=== PATIENT | female | born 1985 | race Caucasian/White ===

== ENCOUNTER 2016-06-10 15:57 | Inpatient (IN) | payer BC ==
[~2016-06-10] VITALS: Ht 167.6 cm; Wt 85.0 kg
[2016-08-15] VITALS (22 sets, daily range): BP systolic 105–164; BP diastolic 47–131; PULSE 61–113; TEMP 97.8–98.2
[2016-08-15] MEDS ORDERED: PEPCID 20MG TAB20 MG PO (07:14)
[2016-08-15] MEDS ORDERED: PRENATAL PLUS (07:14)
[2016-08-15] MEDS ORDERED: COLACE 100100 MG/CAP PO (07:14)
[2016-08-15 07:22] LABS: BASO # 0.1 (0.0-0.2); BASO % 0.8 % (0.0-2.0); EOS # 0.1 (0.0-0.7); EOS % 0.7 % (0-4.0); GRAN # 7.1 (1.4-6.5); GRAN % 78.4 % (42.2-75.2); HEMATOCRIT 37.5 % (37.0-47.0); HEMOGLOBIN 13.2 g/dl (12.5-16.0); LYMPH # 1.3 (1.2-3.4); MEAN CELL VOLUME 94 fl (80.0-100.0); MEAN CORPUSCULAR HEMOGLOBIN 33 pg (27.0-31.0); MEAN CORPUSCULAR HGB CONC 35 g/dl (33.0-37.0); MEAN PLATELET VOLUME 10.2 fl (7.4-10.4); MONO # 0.5 (0.1-0.6); MONO % 5.4 % (1.7-9.3); PLATELET COUNT 203 K/mm3 (130-400); RED BLOOD COUNT 4.01 M/mm3 (4.10-5.30); REDCELL DISTRIBUTION WIDTH-CV 12.2 % (11.5-14.5)
[2016-08-15] MEDS ORDERED: MOTRIN 800800 MG/TAB PO (18:08)
[2016-08-15] MEDS ORDERED: PERCOCET 325 MG1 TA2 PO (18:08)
[2016-08-16 09:25] VITALS: BP 109/64; PULSE 80; TEMP 98.3
[2016-08-16 16:42] VITALS: BP 110/60; PULSE 72; TEMP 98
[2016-08-16 22:20] VITALS: BP 114/70; PULSE 76; TEMP 97.9
[2016-08-17 09:15] VITALS: BP 107/72; PULSE 80; TEMP 97.5
== END 2016-08-17 17:00 | disposition home or self-care (01) | DRG 775 ==
LOC: EDSTATUS 08-09 08:36 → LDRO 08-09 15:56 → LDR 08-15 06:31 → OB 08-15 13:03
PROVIDERS: Obstetrics & Gynecology
PROC: 10E0XZZ Delivery of Products of Conception, External Approach (ICD-10-PCS; principal; 2016-08-15)
PROC: 0UQM0ZZ Repair Vulva, Open Approach (ICD-10-PCS; 2016-08-15)
PROC: 3E033VJ Introduction of Other Hormone into Peripheral Vein, Percutaneous Approach (ICD-10-PCS; 2016-08-15)
PROC: 0HQ9XZZ Repair Perineum Skin, External Approach (ICD-10-PCS; 2016-08-15)
DX: O48.0 Post-term pregnancy (principal); O70.0 First degree perineal laceration during delivery; Z3A.40 40 weeks gestation of pregnancy; Z37.0 Single live birth
CPT/HCPCS: J2590; J7120

== ENCOUNTER → 2016-09-09 | Outpatient (CLI) | payer BC ==
[~2016-09-09] MED LIST: COLACE 100100 MG/CAP PO; MOTRIN 800800 MG/TAB PO; PEPCID 20MG TAB20 MG PO; PERCOCET 325 MG1 TA2 PO; PRENATAL PLUS
== END ==
LOC: OLC 14:47
DX: Z39.1 Encounter for care and examination of lactating mother (principal); Z71.89 Other specified counseling

== ENCOUNTER 2018-04-30 06:06 | Inpatient (IN) | payer BC ==
[~2018-04-30] VITALS: Ht 167.6 cm; Wt 85.0 kg
[2018-04-30] VITALS (24 sets, daily range): BP systolic 111–146; BP diastolic 70–91; PULSE 68–101; TEMP 97.7–98.3
--- NOTE | 2018-04-30 07:30 | NUR ---
Patient ambulatory to LR6, changed into gown, and FHR/TOCO monitors placed and explained. Patient denies any vaginal bleeding or leaking fluid. States she has been feeling random contractions. 0745: SVE-/-2 0800: IV started in right hand, blood drawn and sent to lab, LR infusing.
--- NOTE | 2018-04-30 07:45 | NUR ---
Difficulty tracing contractions and toco monitor adjusted.
[2018-04-30] MEDS ORDERED: TYLENOL 500MG500 MG PO (08:06)
[2018-04-30 08:50] LABS: BASO # 0.1 (0.0-0.2); BASO % 0.7 % (0.0-2.0); EOS # 0.1 (0.0-0.7); EOS % 0.7 % (0-4.0); GRAN % 78.4 % (42.2-75.2); HEMATOCRIT 39.1 % (37.0-47.0); HEMOGLOBIN 13.2 g/dl (12.5-16.0); LYMPH # 1.2 (1.2-3.4); LYMPH % 13.9 % (20.0-51.0); MEAN CELL VOLUME 97 fl (80.0-100.0); MEAN CORPUSCULAR HEMOGLOBIN 33 pg (27.0-31.0); MEAN CORPUSCULAR HGB CONC 34 g/dl (33.0-37.0); MONO # 0.5 (0.1-0.6); MONO % 5.6 % (1.7-9.3); PLATELET COUNT 193 K/mm3 (130-400); RED BLOOD COUNT 4.04 M/mm3 (4.10-5.30); REDCELL DISTRIBUTION WIDTH-CV 12.3 % (11.5-14.5)
--- NOTE | 2018-04-30 09:00 | NUR ---
Dr Davey at bedside and evaluating patient/FHR strip. 0905: SVE-4/80/-2 and AROM at this time with clear fluid noted. Patient tolerates well. Plan of care discussed. Orders from physician to continue to increase pitocin.
--- NOTE | 2018-04-30 09:10 | NUR ---
Patient requesting to take own pepcid. Dr. Davey called and orders for her to take own pepcid/continue to increase pitocin/can have epidural anytime. 0915: Patient takes own pepcid at this time.
--- NOTE | 2018-04-30 10:38 | NUR ---
Patient off monitor to void. 1047: Patient back on monitor and on birthing ball.
--- NOTE | 2018-04-30 11:00 | NUR ---
Patient off monitor to void. 1103: Patient back on monitor. Patient states she is feeling different pressure than before. 1105: SVE-6-7/90/-1 with bloody show 1109: Off monitor to void. 1111: Back on monitor and feeling more pressure. Dr Davey called and updated. 1126: SVE-8/100/-1 and feeling more pressure 1128: Dr. Davey called and notified and on the way. Patient begins to become more uncomfortable and more pressure. 1138: Dr. Davey at bedside and patient feeling like she needs to push. 1140: Patient lays back and prepped for vaginal delivery, bed apart, feet in stirrups. 1144: Spontaneous vaginal delivery of head followed by body. Infant bulb syringed and onto mothers Sarika rossi RN assumes care of infant. Cord clamped by physician and cut by FOB. Cord blood obtained. Dr. Davey injects lidocaine to perineum. 1149: Spontaneous delivery of placenta and pitocin bolus started per protocol. Dr. Davey begins to repair laceration. Fundal massage done/firm/bleeding WNL. Pericare done. 1155: Patient repositioned, ice pack to perineum. Plan of care discussed and will cotinue to monitor.
--- NOTE | 2018-04-30 14:40 | NUR ---
1440- Pt up to bathroom, ambulates independently with RN standby assist only. Pt unable to void at this time. Pericare completed and explained. Underwear, icepack and clean gown on. Pt ambulates to room. Pt and oriented to room. Plan of care discussed. Denies questions. Call light within reach.
[2018-05-01] VITALS: BP 103/63; PULSE 77; TEMP 97.9
[2018-05-01 04:00] VITALS: BP 107/67; PULSE 68; TEMP 97.9
[2018-05-01 07:00] VITALS: BP 108/68; PULSE 94; TEMP 98.8
[2018-05-01] MEDS ORDERED: IBU600 MG PO (11:01)
[2018-05-01] MEDS ORDERED: PERCOCET 325 MG1 TA2 PO (11:01)
== END 2018-05-01 15:50 | disposition home or self-care (01) | DRG 807 ==
LOC: LDR 06:06 → OB 15:00
PROVIDERS: ADMIT Obstetrics & Gynecology
PROC: 10E0XZZ Delivery of Products of Conception, External Approach (ICD-10-PCS; principal; 2018-04-30)
PROC: 10907ZC Drainage of Amniotic Fluid, Therapeutic from Products of Conception, Via Natural or Artificial Opening (ICD-10-PCS; 2018-04-30)
PROC: 3E033VJ Introduction of Other Hormone into Peripheral Vein, Percutaneous Approach (ICD-10-PCS; 2018-04-30)
PROC: 0HQ9XZZ Repair Perineum Skin, External Approach (ICD-10-PCS; 2018-04-30)
DX: O48.0 Post-term pregnancy (principal); Z37.0 Single live birth; O70.0 First degree perineal laceration during delivery; Z3A.40 40 weeks gestation of pregnancy; K21.9 Gastro-esophageal reflux disease without esophagitis
CPT/HCPCS: J2590; J7120

== ENCOUNTER 2020-01-02 14:30 | Outpatient (RCR) | payer BC ==
[~2020-01-02 14:30] MED LIST changes: +IBU600 MG PO; +TYLENOL 500MG500 MG PO
== END 2020-02-14 | disposition home or self-care (01) ==
LOC: MKS.ESL.PT
DX: M62.08 Separation of muscle (nontraumatic), other site (principal)

== ENCOUNTER → 2023-10-29 | Outpatient (CLI) | payer BC | LOC: MC.RAD 11:20 | DX: Z12.31 Encounter for screening mammogram for malignant neoplasm of breast (principal) ==